=== PATIENT | male | born 1985 | race Caucasian/White ===

== ENCOUNTER 2023-02-26 12:45 | Outpatient (CLI) | payer OTHER ==
[2023-02-26 21:50] LABS: CHLAMYDIA TRACHOMATIS DNA NEGATIVE (NEGATIVE); NEISSERIA GONORRHOEAE DNA NEGATIVE (NEGATIVE); TRICHOMONAS VAGINALIS DNA NEGATIVE (NEGATIVE)
[2023-02-27 05:14] LABS: RPR Non Reactive (Non Reactive)
[2023-02-27 09:10] LABS: HIV SCREEN 4TH GENERATION Non Reactive (Non Reactive)
[2023-02-27 21:07] LABS: HCV AB Non Reactive (Non Reactive)
== END 2023-02-26 13:00 | disposition home or self-care (01) ==
LOC: LAB.N 12:45
PROVIDERS: ATTEND Physician Assistant Medical
DX: Z11.3 Encounter for screening for infections with a predominantly sexual mode of transmission (principal)
CPT/HCPCS: 36415; 86592; 86803; 87389; 87491; 87591; 87661